=== PATIENT | female | born 1980 | race African-American/Black ===

== ENCOUNTER 2017-11-08 19:53 | Emergency (ER) | payer OTHER ==
[~2017-11-08] VITALS: Ht 170.2 cm; Wt 60.0 kg
[~2017-11-08 19:53] MED LIST: POLY10O EACH EYE; ZITH250T PO
[2017-11-08 20:04] VITALS: BP 142/64; PULSE 98; RESP 16; TEMP 99; O2SAT 100
--- NOTE | 2017-11-08 21:50 | PD ---
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 She states it was heavier earlier but now it has gone to spotting. She states that she is starting to feel weak. She denies any other concurrent complaints other than when she was having heavier bleeding she was having lower abdominal cramping. She denies any urinary symptoms. She denies possibility of . Quality is bright red. Severity is currently spotting. She does state that she has history of uterine fibroids. She denies specific modifying factors. Duration is 3 weeks. PFSH Past Medical History Narrative Medical fibroids Diminished Hearing: No ?: Not : 2 Para: 0 Miscarriage: 1 : 1 Past Surgical History Gynecologic Surgery: Yes (D & C) Family History Family Hypercholesterolemia: No Social History Alcohol Use: Yes (SOCIALLY) Tobacco Use: Yes (BLACK & MILD OCCASIONALLY) Substance Use: No Allergies-Medications (Allergen,Severity, Reaction): Coded Allergies: No Known Allergies (Verified , 11/01/14) Reported Meds & Prescriptions Reported Meds & Active Scripts Active Polytrim Opth (Polymyxin/Trimethoprim Sulfate) 10 Ml Soln 1 Drop EACH EYE Q4 7 Days Zithromax Z-Duc (Azithromycin) 250 Mg Tab 250 Mg PO DIRECTED 500 MG (2 TABLETS) PO ON DAY 1, THEN 250 MG (1 TABLET) PO ON DAYS 2 TO 5. Review of Systems Except as stated in HPI: all other systems reviewed are Neg Physical Exam Narrative GENERAL: 37-year-old female in no apparent distress SKIN: Focused skin assessment warm/dry. HEAD: Atraumatic. Normocephalic. EYES: Pupils equal and round. No scleral icterus. No injection or drainage. ENT: No nasal bleeding or discharge. Mucous membranes pink and moist. NECK: Trachea midline. CARDIOVASCULAR: Regular rate and rhythm. RESPIRATORY: No accessory muscle use. Clear to auscultation. Breath sounds equal bilaterally. GASTROINTESTINAL: Abdomen soft, non-tender, nondistended. MUSCULOSKELETAL: No obvious deformities. No clubbing. No cyanosis. No edema. NEUROLOGICAL: Awake and alert. No obvious cranial nerve deficits. Motor grossly within normal limits. Normal speech. PSYCHIATRIC: Appropriate mood and affect; insight and judgment normal. Back: No midline pain, no CVA tenderness Data Data Last Documented VS Vital Signs Date Time Temp Pulse Resp B/P (MAP) Pulse Ox O2 Delivery O2 Flow Rate FiO2 11/08/17 23:20 11/08/17 23:00 90 16 100 Room Air 11/08/17 20:04 99.0 Orders Orders Complete Blood Count With Diff (11/08/17 21:35) Basic Metabolic Panel (Bmp) (11/08/17 21:35) Iv Access Insert/Monitor (11/08/17 21:35) Oximetry (11/08/17 21:35) Ed Urine Pregnancytest Poc (11/08/17 21:35) Potassium Chloride Eff (K-Lyte Cl Eff) (11/08/17 22:30) Ed Discharge Order (11/08/17 23:15) Labs Laboratory Tests Test 11/08/17 21:45 White Blood Count 5.8 TH/MM3 Red Blood Count 4.10 MIL/MM3 Hemoglobin 10.9 GM/DL Hematocrit 33.0 % Mean Corpuscular Volume 80.5 FL Mean Corpuscular Hemoglobin 26.6 PG Mean Corpuscular Hemoglobin Concent 33.1 % Red Cell Distribution Width 17.5 % Platelet Count 267 TH/MM3 Mean Platelet Volume 7.7 FL Neutrophils (%) (Auto) 51.9 % Lymphocytes (%) (Auto) 37.9 % Monocytes (%) (Auto) 8.6 % Eosinophils (%) (Auto) 1.1 % Basophils (%) (Auto) 0.5 % Neutrophils # (Auto) 3.0 TH/MM3 Lymphocytes # (Auto) 2.2 TH/MM3 Monocytes # (Auto) 0.5 TH/MM3 Eosinophils # (Auto) 0.1 TH/MM3 Basophils # (Auto) 0.0 TH/MM3 CBC Comment DIFF FINAL Differential Comment Blood Urea Nitrogen 4 MG/DL Creatinine 0.71 MG/DL Random Glucose 96 MG/DL Calcium Level 8.9 MG/DL Sodium Level 140 MEQ/L Potassium Level 3.2 MEQ/L Chloride Level 106 MEQ/L Carbon Dioxide Level 28.1 MEQ/L Anion Gap 6 MEQ/L Estimat Glomerular Filtration Rate 113 ML/MIN MDM Medical Decision Making Medical Screen Exam Complete: Yes Emergency Medical Condition: Yes Medical Record Reviewed: Yes (Past history confirmed) Interpretation(s) CBC & BMP Diagram 11/08/17 21:45 Calcium Level 8.9 Differential Diagnosis Anemia, electrolyte abnormality, fibroids, dysfunctional uterine bleeding Narrative Course We will check blood work, test and reevaluate Patient informed of results and potassium replaced. Patient is frustrated because she is having difficulty getting in with her primary doctor. Informed nurse to see if she can help assist, all questions answered. Patient knows that follow up is incumbent on them and to return to the emergency room immediately if new or worsening symptoms develop. Patient given strict return precautions, vitals reviewed and are normal, agrees to further workup as an outpatient. Diagnosis Primary Impression: General weakness Additional Impressions: Vagina bleeding Hypokalemia Anemia Qualified Codes: D64.9 - Anemia, unspecified Patient Instructions: General Instructions Additional Instructions: tylenol and motrin as needed, follow with a primary doctor and epic cadence analyst, return with any emergent need Med/Other Pt SpecificInfo: No Change to Meds Disposition: 01 DISCHARGE HOME Condition: Stable Irma Travis MD Nov 08, 2017 21:50
[2017-11-08 21:51] VITALS: BP 136/79; PULSE 86; RESP 14; O2SAT 100
[2017-11-08 22:05] LABS: BASOPHIL % 0.5 % (0.0-2.0); EOSINOPHIL # 0.1 TH/MM3 (0-0.4); EOSINOPHIL % 1.1 % (0.0-4.0); HEMOGLOBIN 10.9 GM/DL (11.6-15.3); LYMPH % 37.9 % (9.0-44.0); LYMPHOCYTE # 2.2 TH/MM3 (1.0-4.8); MEAN CELL VOLUME 80.5 FL (80.0-100.0); MEAN CORPUSCULAR HEMOGLOBIN 26.6 PG (27.0-34.0); MEAN CORPUSCULAR HGB CONC 33.1 % (32.0-36.0); MEAN PLATELET VOLUME 7.7 FL (7.0-11.0); MONO % 8.6 % (0.0-8.0); MONOCYTE # 0.5 TH/MM3 (0-0.9); NEUT % 51.9 % (16.0-70.0); PLATELET COUNT 267 TH/MM3 (150-450); RED CELL DISTRIBUTION WIDTH 17.5 % (11.6-17.2); WHITE BLOOD COUNT 5.8 TH/MM3 (4.0-11.0)
[2017-11-08 22:21] LABS: BICARBONATE 28.1 MEQ/L (21.0-32.0); CALCIUM 8.9 MG/DL (8.5-10.1); CREATININE 0.71 MG/DL (0.50-1.00)
[2017-11-08] MEDS ORDERED: POTASSIUM CHLORIDE 25 MEQ EFFERVESCENT TAB PO ONE (22:30)
[2017-11-08 23:00] VITALS: BP 146/94; PULSE 90; RESP 16; O2SAT 100
== END 2017-11-08 23:38 | disposition home or self-care (01) ==
LOC: NEPE 19:53
DX: R53.1 Weakness (principal); N93.9 Abnormal uterine and vaginal bleeding, unspecified; E87.6 Hypokalemia; D64.9 Anemia, unspecified; Z72.0 Tobacco use
CPT/HCPCS: 80048; 84703; 85025; 99283

== ENCOUNTER 2017-11-19 01:35 | Emergency (ER) | payer OTHER ==
[~2017-11-19] VITALS: Ht 172.7 cm; Wt 60.0 kg
[2017-11-19] MEDS ORDERED: IOHEXOL 350 MG/ML 10 ML VIAL (for RAD DIAG) IVCONTRAST ONE (01:36)
[2017-11-19 01:39] VITALS: BP 140/78; PULSE 116; RESP 18; TEMP 98.9; O2SAT 99
[2017-11-19] MEDS ORDERED: SODIUM CHLORIDE 0.9% FLUSH 10 ML FLUSH IV FLUSH PRN (02:15)
--- NOTE | 2017-11-19 02:15 | PD ---
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 Santiago is coming in with a chronic intermittent lower abdominal pain that has been ongoing for weeks. However she states that it has recently gotten worse, and is now more sharply painful, rates it at 8-9 out of 10, and she has had a discharge along with it as well. Patient also complains that eating or drinking anything actually worsens her pain. Denies having any nausea vomiting or diarrhea. No known drug allergy Past medical history significant for fibroid, D&C, she is a G2 p.o. [facility] Past Medical History Diminished Hearing: No Reproductive: Yes (fibroids) Tetanus Vaccination: > 5 Years ?: Not LMP: 10/15/2017 : 2 Para: 0 Miscarriage: 1 : 1 Dilation and Curettage (D&C): Yes Past Surgical History Gynecologic Surgery: Yes (D & C) Family History Family Hypercholesterolemia: No Social History Alcohol Use: Yes (SOCIALLY) Tobacco Use: Yes (BLACK & MILD OCCASIONALLY) Substance Use: No Allergies-Medications (Allergen,Severity, Reaction): Coded Allergies: No Known Allergies (Verified Adverse Reaction, Unknown, 11/19/17) Reported Meds & Prescriptions Reported Meds & Active Scripts Active Ultram (Tramadol HCl) 50 Mg Tab 50 Mg PO Q6H PRN Polytrim Opth (Polymyxin/Trimethoprim Sulfate) 10 Ml Soln 1 Drop EACH EYE Q4 7 Days Zithromax Z-Duc (Azithromycin) 250 Mg Tab 250 Mg PO DIRECTED 500 MG (2 TABLETS) PO ON DAY 1, THEN 250 MG (1 TABLET) PO ON DAYS 2 TO 5. Review of Systems General / Constitutional: No: Fever Eyes: No: Visual changes HENT: No: Headaches Cardiovascular: No: Chest Pain or Discomfort Respiratory: No: Shortness of Breath Gastrointestinal: Positive: Abdominal Pain Genitourinary: No: Dysuria Musculoskeletal: No: Pain Skin: No Rash Neurologic: No: Weakness Psychiatric: No: Depression Endocrine: No: Polydipsia Hematologic/Lymphatic: No: Easy Bruising Physical Exam Narrative GENERAL: SKIN: Warm and dry. HEAD: Atraumatic. Normocephalic. EYES: Pupils equal and round. No scleral icterus. No injection or drainage. ENT: No nasal bleeding or discharge. Mucous membranes pink and moist. NECK: Trachea midline. No JVD. CARDIOVASCULAR: Regular rate and rhythm. RESPIRATORY: No accessory muscle use. Clear to auscultation. Breath sounds equal bilaterally. GASTROINTESTINAL: Abdomen soft, non-tender, nondistended. Right lower quadrant/ suprapubic/left lower quadrant tenderness to percussion. Without any rebound/ guarding/rigidity. RN at the bedside swabs collected for pelvic examination. There was no CMT, no adnexal masses palpated. MUSCULOSKELETAL: Extremities without clubbing, cyanosis, or edema. No obvious deformities. NEUROLOGICAL: Awake and alert. No obvious cranial nerve deficits. Motor grossly within normal limits. Five out of 5 muscle strength in the arms and legs. Normal speech. PSYCHIATRIC: Appropriate mood and affect; insight and judgment normal. Data Data Last Documented VS Vital Signs Date Time Temp Pulse Resp B/P (MAP) Pulse Ox O2 Delivery O2 Flow Rate FiO2 11/19/17 01:39 98.9 116 18 140/78 (98) 99 Orders Orders Complete Blood Count With Diff (11/19/17 02:05) Comprehensive Metabolic Panel (11/19/17 02:05) Lipase (11/19/17 02:05) Ct Abd/Pel W Iv Contrast(Rout) (11/19/17 02:05) Iv Access Insert/Monitor (11/19/17 02:05) Ecg Monitoring (11/19/17 02:05) Oximetry (11/19/17 02:05) NPO (11/19/17 02:05) Sodium Chloride 0.9% Flush (Ns Flush) (11/19/17 02:15) Ed Urine Pregnancytest Poc (11/19/17 02:05) Oral Contrast - Adult (11/19/17 02:13) Wet Prep Profile (11/19/17 03:20) Gc And Chlamydia Pcr (11/19/17 03:20) Diatrizoate Liq ( Gastroview Liq) (11/19/17 03:51) Iohexol 350 Inj (Omnipaque 350 Inj) (11/19/17 01:36) Ed Discharge Order (11/19/17 05:49) Labs Laboratory Tests Test 11/19/17 02:58 11/19/17 03:25 White Blood Count 9.0 TH/MM3 Red Blood Count 4.50 MIL/MM3 Hemoglobin 11.9 GM/DL Hematocrit 35.7 % Mean Corpuscular Volume 79.4 FL Mean Corpuscular Hemoglobin 26.4 PG Mean Corpuscular Hemoglobin Concent 33.3 % Red Cell Distribution Width 16.5 % Platelet Count 362 TH/MM3 Mean Platelet Volume 7.5 FL Neutrophils (%) (Auto) 70.2 % Lymphocytes (%) (Auto) 20.6 % Monocytes (%) (Auto) 8.4 % Eosinophils (%) (Auto) 0.3 % Basophils (%) (Auto) 0.5 % Neutrophils # (Auto) 6.3 TH/MM3 Lymphocytes # (Auto) 1.9 TH/MM3 Monocytes # (Auto) 0.8 TH/MM3 Eosinophils # (Auto) 0.0 TH/MM3 Basophils # (Auto) 0.0 TH/MM3 CBC Comment DIFF FINAL Differential Comment Blood Urea Nitrogen 7 MG/DL Creatinine 0.84 MG/DL Random Glucose 94 MG/DL Total Protein 8.0 GM/DL Albumin 4.0 GM/DL Calcium Level 9.5 MG/DL Alkaline Phosphatase 68 U/L Aspartate Amino Transf (AST/SGOT) 18 U/L Alanine Aminotransferase (ALT/SGPT) 20 U/L Total Bilirubin 0.5 MG/DL Sodium Level 140 MEQ/L Potassium Level 3.4 MEQ/L Chloride Level 104 MEQ/L Carbon Dioxide Level 28.7 MEQ/L Anion Gap 7 MEQ/L Estimat Glomerular Filtration Rate 93 ML/MIN Lipase 148 U/L Clue Cells (Wet Prep) NONE SEEN Vaginal Trichomonas (Wet Prep) NONE SEEN Vaginal Yeast (Wet Prep) NONE SEEN Chlamydia trachomatis DNA (PCR) NOT DETECTED Neisseria gonorrhoeae DNA (PCR) NOT DETECTED MDM Medical Decision Making Medical Screen Exam Complete: Yes Emergency Medical Condition: Yes Medical Record Reviewed: Yes Differential Diagnosis Dysfunctional uterine bleeding versus PID versus POA versus colitis versus appendicitis versus diverticulitis Narrative Course CBC shows no leukocytosis, no anemia, no left shift, and a normal platelet count Clue cells negative, trichomonas negative, yeast negative Normal electrolytes, normal kidney liver and pancreatic functions. CT abdomen pelvis read by radiologist as fundal fibroids, 2.3 cm left ovarian cyst. Diagnosis Primary Impression: Left ovarian cyst Additional Impression: Fibroid uterus Referrals: Maricarmen Carmona MD FOR ADDITIONAL CARE AND EVALUATION OF YOUR COMPLAINTS. Patient Instructions: General Instructions, Ovarian Cyst (ED), Uterine Fibroids (ED) Scripts Tramadol (Ultram) 50 Mg Tab 50 MG PO Q6H Y for PAIN, #10 TAB 0 Refills Prov: Linwood Lombardi MD 11/19/17 Disposition: 01 DISCHARGE HOME Condition: Stable Linwood Lombardi MD Nov 19, 2017 02:15
[2017-11-19 03:16] LABS: AUTOMATED NEUTROPHIL # 6.3 TH/MM3 (1.8-7.7); BASOPHIL % 0.5 % (0.0-2.0); EOSINOPHIL % 0.3 % (0.0-4.0); HEMATOCRIT 35.7 % (35.0-46.0); HEMOGLOBIN 11.9 GM/DL (11.6-15.3); LYMPH % 20.6 % (9.0-44.0); LYMPHOCYTE # 1.9 TH/MM3 (1.0-4.8); MEAN CELL VOLUME 79.4 FL (80.0-100.0); MEAN CORPUSCULAR HEMOGLOBIN 26.4 PG (27.0-34.0); MEAN CORPUSCULAR HGB CONC 33.3 % (32.0-36.0); MEAN PLATELET VOLUME 7.5 FL (7.0-11.0); MONO % 8.4 % (0.0-8.0); MONOCYTE # 0.8 TH/MM3 (0-0.9); NEUT % 70.2 % (16.0-70.0); PLATELET COUNT 362 TH/MM3 (150-450); RED CELL DISTRIBUTION WIDTH 16.5 % (11.6-17.2)
[2017-11-19 03:37] LABS: ALT (GPT) 20 U/L (10-53); AST (GOT) 18 U/L (15-37); BICARBONATE 28.7 MEQ/L (21.0-32.0); BLOOD UREA NITROGEN 7 MG/DL (7-18); CALCIUM 9.5 MG/DL (8.5-10.1); CHLORIDE 104 MEQ/L (98-107); CREATININE 0.84 MG/DL (0.50-1.00); GLOMERULAR FILTRATION RATE 93 ML/MIN (>89); GLUCOSE,RANDOM 94 MG/DL (74-106); SODIUM (NA) 140 MEQ/L (136-145)
[2017-11-19 03:39] LABS: ALKALINE PHOSPHATASE 68 U/L (45-117); TOTAL BILIRUBIN ADULT 0.5 MG/DL (0.2-1.0)
[2017-11-19] MEDS ORDERED: DIATRIZOATE MEGLUM/DIATRIZOATE SOD 9 ML CUP ONE (03:51)
--- NOTE | 2017-11-19 05:41 | RADRPT ---
EXAM DATE/TIME: 11/19/2017 04:56 [facility] COMPARISON: No previous studies available for comparison. INDICATIONS : Lower abdomen pain. IV CONTRAST: 97 cc Omnipaque 350 (iohexol) IV ORAL CONTRAST: Partial prescribed oral contrast ingested. RADIATION DOSE: 6.64 CTDIvol (mGy) MEDICAL HISTORY : None SURGICAL HISTORY : None. ENCOUNTER: Initial ACUITY: 1 day PAIN SCALE: 7/10 LOCATION: abdomen TECHNIQUE: Volumetric scanning of the abdomen and pelvis was performed. Using automated exposure control and ad justment of the mA and/or kV according to patient size, radiation dose was kept as low as reasonably achievable to obtain optimal diagnostic quality images. DICOM format image data is available electro nically for review and comparison. FINDINGS: LOWER LUNGS: The visualized lower lungs are clear. LIVER: Homogeneous density without lesion. There is no dilation of the biliary tree. No calcified gallston es. SPLEEN: Normal size without lesion. PANCREAS: Within normal limits. 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 ADRENAL GLANDS: Within normal limits. VASCULAR: There is no aortic aneurysm. BOWEL/MESENTERY: The stomach, small bowel, and colon demonstrate no acute abnormality. There is no free intraperitone al air or fluid. ABDOMINAL WALL: Within normal limits. RETROPERITONEUM: There is no lymphadenopathy. BLADDER: No wall thickening or mass. REPRODUCTIVE: 2.3 cm cyst in left ovary. Two Subserosal enhancing nodules in the uterine dome are probably small fi broids. Endometrial stripe is somewhat prominent, likely related to phase of menses. INGUINAL: There is no lymphadenopathy or hernia. MUSCULOSKELETAL: Within normal limits for patient age. CONCLUSION: 1. Probable subserosal uterine fundal fibroids. Largest measures 1.4 cm in diameter. 2. 2.3 cm left ovarian cyst. This could explain clinical symptoms. 3. 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 Jj Mike MD on November 19, 2017 at 5:34 Board Certified Radiologist. This report was verified electronically.
[2017-11-19] MEDS ORDERED: TRAM50 PO (05:48)
== END 2017-11-19 06:48 | disposition home or self-care (01) ==
LOC: NEPE 01:35
DX: N83.202 Unspecified ovarian cyst, left side (principal); D25.9 Leiomyoma of uterus, unspecified; Z72.0 Tobacco use
CPT/HCPCS: 74177; 80053; 83690; 84703; 85025; 87210; 87491; 87591; 99285; Q9963; Q9967